=== PATIENT | male | born 1970 | race Hispanic/Latino ===

== ENCOUNTER 2025-01-15 18:21 | Emergency (ER) | payer OTHER | END 2025-01-15 19:28 | disposition home or self-care (01) | LOC: NAV ERS 18:21 | DX: M19.90 Unspecified osteoarthritis, unspecified site (principal); I10 Essential (primary) hypertension; E11.9 Type 2 diabetes mellitus without complications; Z79.899 Other long term (current) drug therapy; Z79.84 Long term (current) use of oral hypoglycemic drugs | CPT/HCPCS: 96372; 99283; J1885 ==